=== PATIENT | male | born 1945 | race Caucasian/White ===

== ENCOUNTER 2022-01-14 06:23 | Observation (INO) ==
[2022-01-14] MEDS ORDERED: CeFAZolin Syr 2,000MG/20 ML 2,000 MG/20 ML SYRINGE IVPB ONE (07:02)
[2022-01-14] MEDS ORDERED: Ringers Solution, Lactated 1,000 ML IVC SCH (07:15)
[2022-01-14] MEDS ORDERED: Lidocaine HCL 4 ML Topical Solution (Laryng-O-Jet Kit Sterile Pak) TP ONE ×2 (07:39→10:20)
[2022-01-14] MEDS ORDERED: *HR* Succinylcholine 200 MG/10 ML VIAL IVP ONE (07:41)
[2022-01-14] MEDS ORDERED: *HR* FentaNYL (PF) 100 MCG/2 ML VIAL ONE ×2 (07:41→10:23)
[2022-01-14] MEDS ORDERED: Sugammadex Sodium 200 MG/2 ML VIAL IV ONE ×3 (07:41→12:44)
[2022-01-14] MEDS ORDERED: Ondansetron 4 MG/2 ML VIAL ONE ×2 (07:41→11:47)
[2022-01-14] MEDS ORDERED: *HR* Rocuronium Bromide 50 MG/5 ML VIAL ONE ×2 (07:41→10:24)
[2022-01-14] MEDS ORDERED: Lidocaine -MPF 2% 2 ML VIAL ONE (07:41)
[2022-01-14] MEDS ORDERED: *HR* Propofol 200 MG/20 ML VIAL IVP ONE ×2 (07:42→11:35)
[2022-01-14] MEDS ORDERED: Isovue-370 500 ML BOTTLE IVP ONE (08:17)
[2022-01-14] MEDS ORDERED: Lidocaine -MPF 2% 5 ML VIAL ONE ×2 (10:24)
[2022-01-14] MEDS ORDERED: *HR* FentaNYL (PF) 100 MCG/2 ML VIAL IVP PRN ×2 (11:18→14:02)
[2022-01-14] MEDS ORDERED: Albuterol 2.5 MG/3 ML NEBULIZER IH PRN ×2 (11:19→14:02)
[2022-01-14] MEDS ORDERED: Naloxone 0.4 MG/ML INJ IVP PRN ×2 (11:19→14:02)
[2022-01-14] MEDS ORDERED: Nitroglycerin 0.4 MG TAB.SUBL SL PRN ×2 (11:19→14:02)
[2022-01-14] MEDS ORDERED: Ondansetron 4 MG/2 ML VIAL IVP PRN ×2 (11:19→14:02)
[2022-01-14] MEDS ORDERED: Acetaminophen IV 1,000 MG/100 ML BAG IVPB ONE ×2 (11:19→11:30)
[2022-01-14] MEDS ORDERED: *HR* HYDROMORPHONE 2 MG/ML VIAL ONE (12:07)
[2022-01-14] MEDS ORDERED: *HR* OxyCODONE/APAP 5/325 TABLET PO PRN ×2 (12:54→14:02)
[2022-01-14] MEDS: *HR* HYDROmorphone (PF) 1 MG/ML SYRINGE IVP PRN ×2 (13:22→13:27)
[2022-01-14] MEDS ORDERED: *HR* HYDROmorphone (PF) 1 MG/ML SYRINGE IVP PRN (14:02)
[2022-01-14 14:16] VITALS: TEMP 97.5
[2022-01-14] MEDS: Ringers Solution, Lactated 1,000 ML IVC SCH ×2 (15:33→16:04)
[2022-01-14 16:18] VITALS: PULSE 54; O2SAT 92
[2022-01-14 17:12] VITALS: BP 121/62
== END 2022-01-14 19:53 | disposition home or self-care (01) ==
LOC: SAMDAY 06:23 → 3ANU 06:23
PROVIDERS: ADMIT Surgery; ATTEND Surgery